=== PATIENT | male | born 1980 | race Caucasian/White ===

== ENCOUNTER 2016-07-20 11:29 | Emergency (ER) | payer OTHER ==
[~2016-07-20 11:29] MED LIST: BENADRYL25 M1 PO; CIPRO PO; FLOMAX0.4 MG PO; METHADONE PO; ORUDIS75 M1 DOB; PHENERGAN PO; PREDNISONE PO; TYLOX 5/500 CAP1 CAP PO; ULTRAM PO
== END 2016-07-20 13:08 | disposition home or self-care (01) ==
LOC: SED 11:29
DX: T40.1X1A Poisoning by heroin, accidental (unintentional), initial encounter (principal); F17.200 Nicotine dependence, unspecified, uncomplicated; Z88.0 Allergy status to penicillin
CPT/HCPCS: 99282

== ENCOUNTER 2016-09-21 08:29 | Emergency (ER) | payer OTHER | END 2016-09-21 11:05 | disposition home or self-care (01) | LOC: CED 08:29 | DX: T40.1X1A Poisoning by heroin, accidental (unintentional), initial encounter (principal); Z87.442 Personal history of urinary calculi; Z88.0 Allergy status to penicillin | CPT/HCPCS: 99284 ==